=== PATIENT | male | born 1990 | race Asian ===

== ENCOUNTER 2017-06-02 22:03 | Emergency (ER) | payer OTHER ==
[2017-06-03] MEDS: HYDROCODONE/APAP (10/325) TAB PO (01:39)
== END 2017-06-03 03:10 | disposition home or self-care (01) ==
LOC: FTE 22:03
DX: S42.021A Displaced fracture of shaft of right clavicle, initial encounter for closed fracture (principal); W18.39XA Other fall on same level, initial encounter; Y92.9 Unspecified place or not applicable
CPT/HCPCS: 29105; 73000; 73030-RT; 99283-25